=== PATIENT | male | born 1970 | race Caucasian/White ===

== ENCOUNTER 2016-12-02 15:17 | Emergency (ER) | payer OTHER ==
[~2016-12-02] VITALS: Ht 170.2 cm; Wt 94.2 kg
[~2016-12-02 15:17] MED LIST: AMO500 PO; AZIT250T94 PO; BENZ100C70 PO; CIPR500T4 PO; DOCU-144 PO; IBUP-1542 PO; IBUP800T25 PO; METR500T PO; SODI44SP11 NASAL; UDROBDM PO
[2016-12-02 15:21] VITALS: Ht 170.2 cm; Wt 94.2 kg
--- NOTE | 2016-12-02 21:11 | ERD ---
ER Documentation Chief Complaint Date/Time DATE: 12/02/16 TIME: 21:09 Chief Complaint cwp HPI 46-year-old male with history of cocaine abuse ambulatory to the ED complaining of feelings of sharp, stabbing, intermittent, nonradiating, mild chest pain while smoking crack yesterday evening. The symptoms were not accompanied by palpitations, shortness of breath, nausea, vomiting or diaphoresis. No chest pain currently. His friend encouraged him to come to the ED to have this checked out. Denies abdominal pain or back pain. No nausea, vomiting, diarrhea or constipation. No headache or neck pain. No visual changes, focal weakness or numbness. No URI symptoms or cough. No fevers or chills. ROS All systems reviewed and are negative except as per history of present illness. Medications Home Meds Active Scripts Docusate Sodium* (Colace*) 100 Mg Capsule, 100 MG PO BID, #30 CAP Prov:LORENZO SOSA MD 05/07/16 Metronidazole* (Flagyl*) 500 Mg Tablet, 500 MG PO BID for 7 Days, TAB Prov:LORENZO SOSA MD 05/07/16 Ciprofloxacin Hcl* (Ciprofloxacin Hcl*) 500 Mg Tablet, 500 MG PO BID for 7 Days , TAB Prov:LORENZO SOSA MD 05/07/16 Ibuprofen* (Motrin*) 600 Mg Tab, 600 MG PO Q6, #20 TAB Prov:LORENZO SOSA MD 05/07/16 Sodium Chloride (Saline Nasal [place]) 45 Ml [place], 2 SPRAYS NASAL Q2H Y for NASAL CONGESTION, #1 BOTTLE Prov:JACOB ROWLAND NP 03/23/16 Benzonatate* (Tessalon Perle*) 100 Mg Capsule, 100 MG PO Q8H Y for COUGH, #30 CAP Prov:JACOB ROWLAND NP 03/23/16 Ibuprofen* (Motrin*) 600 Mg Tab, 600 MG PO Q6, #20 TAB Prov:SIDNEY MARADIAGA PA-C 02/27/16 Amoxicillin* (Amoxicillin*) 500 Mg Cap, 500 MG PO TID for 7 Days, CAP Prov:SIDNEY MARADIAGA PA-C 02/27/16 Ibuprofen* (Motrin*) 800 Mg Tab, 800 MG PO Q6H Y for PAIN AND OR ELEVATED TEMP, #30 TAB Prov:STUART ARREGUIN PA-C 01/29/16 Azithromycin* (Zithromax*) 250 Mg Tablet, 250 MG PO .ZPACK DIRECTED, #6 TAB 0 Refills TAKE 500 MG (2 TABS) THE FIRST DAY THEN 250 MG (1 TAB) DAYS 2-5 Prov:YOHANA CERVANTES PA-C 10/22/15 Guaifenesin-Dextromethorphan* (Robitussin* DM) 100MG/10MG/5ML Syrup, 5 ML PO Q6H Y for COUGH, #240 ML 0 Refills Prov:YOHANA CERVANTES PA-C 10/22/15 Reported Medications [none] No Conflict Check 02/23/13 Allergies Allergies: Coded Allergies: No Known Allergies (Verified Allergy, Mild, 04/16/13) PMhx/Soc Reviewed in chart. As per HPI. History of Surgery: No Anesthesia Reaction: No Hx Neurological Disorder: No Hx Respiratory Disorders: No Hx Cardiac Disorders: No Hx Psychiatric Problems: No Hx Miscellaneous Medical Probl: Yes (Diverticulitis) Hx Alcohol Use: Yes (Crack cocaine social) Hx Substance Use: Yes Hx Tobacco Use: Yes Smoking Status: Never smoker FmHx Maternal grandmother had heart disease. No family history of stroke or cancer Physical Exam Vitals Vital Signs Date Time Temp Pulse Resp B/P Pulse Ox O2 Delivery O2 Flow Rate FiO2 12/02/16 22:14 75 17 123/62 96 Room Air 12/02/16 20:44 71 16 137/92 100 Room Air 12/02/16 15:21 98.1 80 20 161/86 98 Physical Exam Const: Alert, no acute distress. Head: Atraumatic Eyes: Normal Conjunctiva ENT: Normal External Ears, Nose and Mouth. Neck: Full range of motion. Nontender. Resp: Clear to auscultation bilaterally Cardio: Regular rate and rhythm, no murmurs. No chest wall tenderness. Abd: Soft, non tender, non distended. Normal bowel sounds Skin: No petechiae or rashes Back: No midline or flank tenderness Ext: No cyanosis, or edema Neur: Awake and alert. No focal deficit observed. Psych: Appears mildly anxious but not depressed. Result Diagram: 12/02/16204412/02/162044 Results 24 hrs Laboratory Tests Test 12/02/16 20:45 White Blood Count 9.210^3/ul Red Blood Count 5.8010^6/ul Hemoglobin 16.4g/dl Hematocrit 49.4% Mean Corpuscular Volume 85.2fl Mean Corpuscular Hemoglobin 28.3pg Mean Corpuscular Hemoglobin Concent 33.2g/dl Red Cell Distribution Width 14.1% Platelet Count 44079^3/UL Mean Platelet Volume 10.0fl Neutrophils % 62.1% Lymphocytes % 25.1% Monocytes % 8.9% Eosinophils % 2.5% Basophils % 0.8% Nucleated Red Blood Cells % 0.0/100WBC Neutrophils # 5.710^3/ul Lymphocytes # 2.310^3/ul Monocytes # 0.810^3/ul Eosinophils # 0.210^3/ul Basophils # 0.110^3/ul Nucleated Red Blood Cells # 0.010^3/ul Sodium Level 141mmol/L Potassium Level 3.6mmol/L Chloride Level 96mmol/L Carbon Dioxide Level 31mmol/L Anion Gap 18 Blood Urea Nitrogen 14mg/dl Creatinine 0.85mg/dl Glucose Level 120mg/dl Calcium Level 9.2mg/dl Total Bilirubin 0.5mg/dl Direct Bilirubin 0.00mg/dl Indirect Bilirubin 0.5mg/dl Aspartate Amino Transf (AST/SGOT) 29IU/L Alanine Aminotransferase (ALT/SGPT) 48IU/L Alkaline Phosphatase 88IU/L Troponin I < 0.012ng/ml Total Protein 8.1g/dl Albumin 4.4g/dl Globulin 3.70g/dl Albumin/Globulin Ratio 1.18 RHYTHM STRIP INTERPRETATION: Time: 21:10. Sinus rhythm. Ventricular rate 72. No ectopy. Indication: Chest pain. EKG: Time: 21:42. Sinus rhythm. Ventricular rate 70, normal RI and QRS intervals. No acute ST segment elevation or depression. No axis deviation or ectopy. EP Impression: Normal EKG IMAGING: PROCEDURE: XR Chest. CLINICAL INDICATION: Chest pain TECHNIQUE: A single portable view of the chest was obtained. COMPARISON: 03/23/2016 FINDINGS: The cardiomediastinal silhouette is within normal limits. The lung volumes are low with bibasilar compressive atelectasis. The remaining lungs and pleural spaces are clear. The soft tissues and osseous structures are unremarkable. IMPRESSION: No acute cardiopulmonary disease. Low lung volumes with bibasilar compressive atelectasis. RPTAT: HPNM Physician Sara Date Time Electronically viewed and signed by Jaren Doshi Physician on 12/02/2016 22 :02 / Procedures/MDM DOCUMENTS REVIEWED: ED nurse, prior ED, prior records REEXAMINATION/REEVALUATION: Time:22:05. No chest pain or palpitations. Sinus rhythm without ectopy. MEDICAL DECISION MAKIN-year-old male with history of cocaine abuse ambulatory to the ED complaining of feelings of sharp, stabbing, intermittent, nonradiating, mild chest pain while smoking crack yesterday evening. Patient presents with atypical chest pain. No ischemic EKG changes or elevated troponin. No radiographic evidence of pneumonia or pneumothorax. PERC negative and low risk for pulmonary embolism. Other cardiac etiology is possible he is at low risk for an acute event and is stable for discharge with precautionary instructions and outpatient follow-up within 72 hours for further risk stratification. Understands return to the ED if symptoms recur. Drug cessation counseling is provided. Counseled patient regarding diagnostic workup, diagnosis and need for followup. Understands to return to ED if symptoms recur, worsen or any other concerns. Departure Diagnosis: Primary Impression: Chest pain of uncertain etiology Additional Impression: Cocaine abuse Condition: Stable Patient Instructions: Chest Pain, Uncertain Cause CARLOS OVIEDO MD Dec 02, 2016 21:11
[2016-12-02 21:13] LABS: ADD SCAN DIFF NO
[2016-12-02 21:15] LABS: BASOPHIL # 0.1 10^3/ul (0.0-0.1); BASOPHILS % 0.8 % (0.0-2.0); EOSINOPHILS # 0.2 10^3/ul (0.0-0.5); EOSINOPHILS % 2.5 % (0.0-7.0); HEMATOCRIT 49.4 % (42.0-52.0); HEMOGLOBIN 16.4 g/dl (14.0-18.0); LYMPHOCYTES # 2.3 10^3/ul (0.8-2.9); LYMPHOCYTES % 25.1 % (15.0-51.0); MEAN CORPUSCULAR HEMOGLOBIN 28.3 pg (29.0-33.0); MEAN CORPUSCULAR HGB CONC 33.2 g/dl (32.0-37.0); MEAN CORPUSCULAR VOLUME 85.2 fl (82.0-101.0); MONOCYTE # 0.8 10^3/ul (0.3-0.9); MONOCYTES % 8.9 % (0.0-11.0); NEUTROPHIL # 5.7 10^3/ul (1.6-7.5); NEUTROPHILS % 62.1 % (39.0-77.0); PLATELET COUNT 369 10^3/UL (140-415); RED CELL DISTRIBUTION WIDTH 14.1 % (11.5-14.5); WHITE BLOOD COUNT 9.2 10^3/ul (4.8-10.8)
[2016-12-02 21:35] LABS: ALBUMIN 4.4 g/dl (3.3-4.9); CHLORIDE 96 mmol/L (97-110)
[2016-12-02 21:36] LABS: POTASSIUM 3.6 mmol/L (3.5-5.1); SODIUM 141 mmol/L (135-144)
[2016-12-02 21:38] LABS: ALANINE AMINOTRANSFERASE 48 IU/L (13-69); ALBUMIN/GLOBULIN RATIO 1.18; ALKALINE PHOSPHATASE 88 IU/L (42-121); ANION GAP 18 (8-16); ASPARTATE AMINO TRANSFERASE 29 IU/L (15-46); BILIRUBIN,INDIRECT 0.5 mg/dl (0-1.1); BILIRUBIN,TOTAL 0.5 mg/dl (0.2-1.3); BLOOD UREA NITROGEN 14 mg/dl (7-20); CARBON DIOXIDE 31 mmol/L (21-31); CREATININE 0.85 mg/dl (0.61-1.24); TOTAL PROTEIN 8.1 g/dl (6.1-8.1)
[2016-12-02 21:39] LABS: CALCIUM 9.2 mg/dl (8.4-10.2); GLUCOSE 120 mg/dl (70-220)
[2016-12-02 21:53] LABS: TROPONIN-I < 0.012 ng/ml (0.00-0.12)
--- NOTE | 2016-12-02 22:02 | RADRPT ---
PROCEDURE: XR Chest. CLINICAL INDICATION: Chest pain TECHNIQUE: A single portable view of the chest was obtained. COMPARISON: 03/23/2016 FINDINGS: The cardiomediastinal silhouette is within normal limits. The lung volumes are low with bibasilar co mpressive atelectasis. The remaining lungs and pleural spaces are clear. The soft tissues and osseo us structures are unremarkable. IMPRESSION: No acute cardiopulmonary disease. Low lung volumes with bibasilar compressive atelectasis. RPTAT: HPNM Physician Sara Date Time Electronically viewed and signed by Jaren Doshi Physician on 12/02/2016 22:02 /
[2016-12-02 22:14] VITALS: BP 123/62; PULSE 75; RESP 17
== END 2016-12-02 22:58 | disposition home or self-care (01) ==
LOC: E/R 15:17
DX: R07.89 Other chest pain (principal); F14.10 Cocaine abuse, uncomplicated; Z87.891 Personal history of nicotine dependence
CPT/HCPCS: 36415; 71010; 80053; 84484; 85025; 93005; Z7502

== ENCOUNTER 2016-12-31 14:08 | Emergency (ER) | payer SELFPAY ==
[~2016-12-31] VITALS: Ht 177.8 cm; Wt 117.0 kg
[2016-12-31 14:21] VITALS: Ht 177.8 cm; Wt 117.0 kg
== END 2016-12-31 20:51 | disposition left against medical advice (07) ==
LOC: E/R 14:08
DX: Z53.21 Procedure and treatment not carried out due to patient leaving prior to being seen by health care provider (principal)
CPT/HCPCS: 93005

== ENCOUNTER 2017-01-04 09:39 | Emergency (ER) | payer OTHER ==
[~2017-01-04] VITALS: Ht 167.6 cm; Wt 113.6 kg
[2017-01-04 09:44] VITALS: Ht 167.6 cm; Wt 113.6 kg
[2017-01-04] MEDS ORDERED: IBUPROFEN 800 MG TAB PO ONE (11:00)
--- NOTE | 2017-01-04 11:05 | ERD ---
ER Documentation Chief Complaint Date/Time DATE: 01/04/17 TIME: 11:01 Chief Complaint MID CHEST PAIN HPI 46-year-old who presents to the emergency room complaining of chest pain. The patient is a very difficult historian. He has a history of polysubstance abuse and cocaine abuse. The patient describes greater than 1 month of symptoms that include intermittent chest wall pain that is worse with rotational movement, worse to touch. He states that the pain is usually alleviated by massaging his muscles. He denies current cocaine abuse. He denies any pleuritic pain, no fevers or chills, no cough, no dyspnea on exertion. ROS All systems reviewed and are negative except as per history of present illness. Medications Home Meds Active Scripts Ibuprofen* (Motrin*) 800 Mg Tab, 800 MG PO Q6H Y for PAIN AND OR ELEVATED TEMP, #30 TAB Prov:JAYDA KAUR MD 01/04/17 Discontinued Reported Medications [none] No Conflict Check 02/23/13 Discontinued Scripts Docusate Sodium* (Colace*) 100 Mg Capsule, 100 MG PO BID, #30 CAP Prov:LORENZO SOSA MD 05/07/16 Metronidazole* (Flagyl*) 500 Mg Tablet, 500 MG PO BID for 7 Days, TAB Prov:LORENZO SOSA MD 05/07/16 Ciprofloxacin Hcl* (Ciprofloxacin Hcl*) 500 Mg Tablet, 500 MG PO BID for 7 Days , TAB Prov:LORENZO SOSA MD 05/07/16 Ibuprofen* (Motrin*) 600 Mg Tab, 600 MG PO Q6, #20 TAB Prov:LORENZO SOSA MD 05/07/16 Sodium Chloride (Saline Nasal [place]) 45 Ml [place], 2 SPRAYS NASAL Q2H Y for NASAL CONGESTION, #1 BOTTLE Prov:JACOB ROWLAND. VP OF MARKETING 03/23/16 Benzonatate* (Tessalon Perle*) 100 Mg Capsule, 100 MG PO Q8H Y for COUGH, #30 CAP Prov:JACOB ROWLAND. VP OF MARKETING 03/23/16 Ibuprofen* (Motrin*) 600 Mg Tab, 600 MG PO Q6, #20 TAB Prov:SIDNEY MARADIAGA PA-C 02/27/16 Amoxicillin* (Amoxicillin*) 500 Mg Cap, 500 MG PO TID for 7 Days, CAP Prov:SIDNEY MARADIAGA PA-C 02/27/16 Ibuprofen* (Motrin*) 800 Mg Tab, 800 MG PO Q6H Y for PAIN AND OR ELEVATED TEMP, #30 TAB Prov:STUART ARREGUIN PA-C 01/29/16 Azithromycin* (Zithromax*) 250 Mg Tablet, 250 MG PO .ZPACK DIRECTED, #6 TAB 0 Refills TAKE 500 MG (2 TABS) THE FIRST DAY THEN 250 MG (1 TAB) DAYS 2-5 Prov:YOHANA CERVANTES PA-C 10/22/15 Guaifenesin-Dextromethorphan* (Robitussin* DM) 100MG/10MG/5ML Syrup, 5 ML PO Q6H Y for COUGH, #240 ML 0 Refills Prov:YOHANA CERVANTES PA-C 10/22/15 Allergies Allergies: Coded Allergies: No Known Allergies (Verified Allergy, Mild, 04/16/13) PMhx/Soc History of Surgery: No Anesthesia Reaction: No Hx Neurological Disorder: No Hx Respiratory Disorders: No Hx Cardiac Disorders: No Hx Psychiatric Problems: No Hx Miscellaneous Medical Probl: Yes (Diverticulitis) Hx Alcohol Use: Yes (Crack cocaine social) Hx Substance Use: Yes Hx Tobacco Use: Yes FmHx Family History: No diabetes Physical Exam Vitals Vital Signs Date Time Temp Pulse Resp B/P Pulse Ox O2 Delivery O2 Flow Rate FiO2 01/04/17 09:44 98.1 80 19 139/75 97 Physical Exam General: Well developed, well nourished, no acute distress Head: Normocephalic, atraumatic. Eyes: Pupils equally reactive, EOM intact ENT: Moist mucous membranes Neck: Supple, no lymphadenopathy Respiratory: Lungs clear bilaterally, no distress, reproducible anterior chest wall tenderness Cardiovascular: RRR, no murmurs, rubs, or gallops Abdominal: Soft, non-tender, non-distended, no peritoneal signs : Deferred MSK: No edema, no unilateral swelling, 5/5 strength, no pulse deficits Neurologic: Alert and oriented, moving all extremities, normal speech, no focal weakness, no cerebellar signs Skin: No rash Psych: Normal mood Result Diagram: 01/04/17 1100 01/04/17 1100 Results 24 hrs Laboratory Tests Test 01/04/17 11:00 White Blood Count 7.210^3/ul Red Blood Count 5.2710^6/ul Hemoglobin 14.8g/dl Hematocrit 45.1% Mean Corpuscular Volume 85.6fl Mean Corpuscular Hemoglobin 28.1pg Mean Corpuscular Hemoglobin Concent 32.8g/dl Red Cell Distribution Width 13.6% Platelet Count 94829^3/UL Mean Platelet Volume 10.3fl Neutrophils % 69.2% Lymphocytes % 19.3% Monocytes % 6.1% Eosinophils % 4.0% Basophils % 0.6% Nucleated Red Blood Cells % 0.0/100WBC Neutrophils # 5.010^3/ul Lymphocytes # 1.410^3/ul Monocytes # 0.410^3/ul Eosinophils # 0.310^3/ul Basophils # 0.010^3/ul Nucleated Red Blood Cells # 0.010^3/ul Sodium Level 136mmol/L Potassium Level 4.0mmol/L Chloride Level 105mmol/L Carbon Dioxide Level 24mmol/L Anion Gap 11 Blood Urea Nitrogen 17mg/dl Creatinine 0.84mg/dl Glucose Level 190mg/dl Calcium Level 8.6mg/dl Troponin I < 0.012ng/ml Current Medications Medications (Trade) Dose Ordered Sig/Lg Route PRN Reason Start Time Stop Time Status Last Admin Dose Admin Ibuprofen (Motrin) 800 mg ONCE ONCE PO 01/04/17 11:00 01/04/17 11:01 DC 01/04/17 10:56 Procedures/MDM EKG, MONITORS, & DIAGNOSTIC IMAGING: EKG: I reviewed and interpreted a 12-lead EKG. Rhythm: Normal sinus rhythm Ectopy: None Intervals: No abnormalities ST segments: No elevations or depressions T waves: No contiguous inversions Chest x-ray: I reviewed and interpreted a 1 view of the chest Mediastinum: No enlargement Cardiac silhouette: No cardiomegaly Airspace: Clear lung irving bilaterally without evidence of pneumothorax Bones: No evidence of fracture LAB INTERPRETATION: Negative troponin MEDICAL DECISION MAKING: The patient's history, physical exam and clinical presentation is concerning for likely muscular skeletal etiology. However the patient does have a history of cocaine abuse placing him at risk for cardiac etiology versus cocaine chest pain. I believe a single EKG and troponin will be reasonable to rule out cardiac etiology though given duration of symptoms, reproducible symptoms this seems extremely unlikely. Based on the patient's clinical exam and history and risk factors, I have a much lower clinical concern for pulmonary embolism, acute aortic dissection, pneumothorax, pneumonia, cardiac tamponade HEART Score: 2 MACE Rate: Less than 1.7% Shared Decision Making: We had a conversation regarding risk stratification, MACE rate, and the risks, benefits, alternatives of disposition planning options. Disposition planning: Inpatient hospitalization and rule out of ACS is not necessary ER COURSE: The patient was given Motrin. The patient's laboratory testing and diagnostic imaging is unrevealing. I believe the patient is safe for discharge. I kept the patient and/or family informed of laboratory and diagnostic imaging results throughout the emergency room course. DISPOSITION PLAN: We discussed follow up with the patient's primary care doctor within 24 to 48 hours as needed. We also discussed return to the emergency room for worsening symptoms or worsening condition. Outpatient referral: [None required] Discharge Medications: Motrin Departure Diagnosis: Primary Impression: Atypical chest pain Additional Impressions: Chest wall pain History of cocaine use Condition: Stable JAYDA KAUR MD Jan 04, 2017 11:05
[2017-01-04 11:23] LABS: ADD SCAN DIFF NO
[2017-01-04 11:26] LABS: BASOPHILS % 0.6 % (0.0-2.0); EOSINOPHILS # 0.3 10^3/ul (0.0-0.5); HEMATOCRIT 45.1 % (42.0-52.0); HEMOGLOBIN 14.8 g/dl (14.0-18.0); LYMPHOCYTES # 1.4 10^3/ul (0.8-2.9); LYMPHOCYTES % 19.3 % (15.0-51.0); MEAN CORPUSCULAR HEMOGLOBIN 28.1 pg (29.0-33.0); MEAN CORPUSCULAR HGB CONC 32.8 g/dl (32.0-37.0); MEAN CORPUSCULAR VOLUME 85.6 fl (82.0-101.0); MEAN PLATELET VOLUME 10.3 fl (7.4-10.4); MONOCYTE # 0.4 10^3/ul (0.3-0.9); MONOCYTES % 6.1 % (0.0-11.0); NEUTROPHILS % 69.2 % (39.0-77.0); PLATELET COUNT 286 10^3/UL (140-415); RED BLOOD COUNT 5.27 10^6/ul (4.70-6.10); RED CELL DISTRIBUTION WIDTH 13.6 % (11.5-14.5); WHITE BLOOD COUNT 7.2 10^3/ul (4.8-10.8)
[2017-01-04 11:42] LABS: ANION GAP 11 (8-16); BLOOD UREA NITROGEN 17 mg/dl (7-20); CALCIUM 8.6 mg/dl (8.4-10.2); CARBON DIOXIDE 24 mmol/L (21-31); CHLORIDE 105 mmol/L (97-110); CREATININE 0.84 mg/dl (0.61-1.24); GLUCOSE 190 mg/dl (70-220); SODIUM 136 mmol/L (135-144)
[2017-01-04 11:52] LABS: TROPONIN-I < 0.012 ng/ml (0.00-0.12)
--- NOTE | 2017-01-04 12:02 | RADRPT ---
PROCEDURE: XR Chest. CLINICAL INDICATION: chest pain TECHNIQUE: Single frontal view of the chest was obtained COMPARISON: 12/02/2016 FINDINGS: The heart and mediastinum are within normal limits. There are mild left lower lobe linear atelectatic changes. The lungs are otherwise clear. There is no pleural effusion or pneumothorax. RPTAT: AA IMPRESSION: Mild left lower lobe linear atelectatic changes. .Elgin Pedroza MD, MD Date Time Electronically viewed and signed by .Elgin Pedroza MD, MD on 01/04/2017 12:01 .S/
[2017-01-04] MEDS ORDERED: IBUP800T25 PO (12:32)
== END 2017-01-04 12:49 | disposition home or self-care (01) ==
LOC: E/R 09:39
DX: R07.89 Other chest pain (principal); F14.90 Cocaine use, unspecified, uncomplicated; Z87.891 Personal history of nicotine dependence
CPT/HCPCS: 36415; 71010; 80048; 84484; 85025; 93005; Z7502; Z7610

== ENCOUNTER 2017-06-30 13:03 | Emergency (ER) | payer OTHER ==
[~2017-06-30] VITALS: Wt 100.0 kg
[~2017-06-30 13:03] MED LIST changes: -AMO500 PO; -AZIT250T94 PO; -BENZ100C70 PO; -CIPR500T4 PO; -DOCU-144 PO; -IBUP-1542 PO; -METR500T PO; -SODI44SP11 NASAL; -UDROBDM PO
--- NOTE | 2017-06-30 18:12 | ERA ---
ER Documentation Chief Complaint Date/Time DATE: 06/30/17 TIME: 18:07 Chief Complaint frequent urination, friend tested his blood sugar (200) last week. HPI Otherwise healthy 46-year-old male presents one day after checking his blood sugar randomly at friend's house and showed a reading of close to 200. Exact reading unknown. Diet prior to checking glucose level unknown. States when he drinks more water he tends to urinate more. Denies any nausea, vomiting, diarrhea, constipation, polyuria, dysuria, hematuria, urinary urgency or frequency, abdominal pain, change in diet. Denies recreational drugs. Denies recent alcohol use. Describes no current symptoms. Patient has no other complaints and describes no other associated manifestations. Nursing notes have been reviewed and are consistent with history given. ROS All systems reviewed and are negative except as per history of present illness. Medications Home Meds Active Scripts Ibuprofen* (Motrin*) 800 Mg Tab, 800 MG PO Q6H Y for PAIN AND OR ELEVATED TEMP, #30 TAB Prov:JAYDA KAUR MD 01/04/17 Allergies Allergies: Coded Allergies: No Known Allergies (Verified Allergy, Mild, 04/16/13) PMhx/Soc History of Surgery: No Anesthesia Reaction: No Hx Neurological Disorder: No Hx Respiratory Disorders: No Hx Cardiac Disorders: No Hx Psychiatric Problems: No Hx Miscellaneous Medical Probl: Yes (Diverticulitis) Hx Alcohol Use: Yes (Crack cocaine social) Hx Substance Use: Yes Hx Tobacco Use: Yes Physical Exam Vitals Vital Signs Date Time Temp Pulse Resp B/P Pulse Ox O2 Delivery O2 Flow Rate FiO2 06/30/17 13:13 98.2 67 20 195/76 98 Physical Exam Const: Overweight. Well-appearing. No acute distress. Head: Normocephalic, Atraumatic. Eyes: Non-injected; No discharge. EOMI and MONTSE bilaterally. Ears: Normal External Ears, EACs clear, TM normal bilaterally without erythema. Nose: Normal external nose; no discharge, or sinus tenderness. Oral: No oral edema visualized. Mucous membranes moist and pink. Neck: No cervical lymphadenopathy, or masses palpated. Supple ~ No meningismus. Pulm: Good air movement in upper and lower respiratory tracts. Clear to auscultation bilaterally. No dyspnea or stridor. Cardio: Regular rate and rhythm; No murmurs, gallops or rubs auscultated. Radial pulses 2+ bilaterally. No cyanosis noted. Capillary refill less than 2 seconds. Abd: Normal bowel sounds. Soft, non tender, non distended. MS: Normal motor strength, normal tone with gross examination. Skin: No petechiae or rashes. Good turgor. Back: No midline, flank or CVA tenderness. Ext: No edema. Normal movement of all extremities grossly observed. Neur: Neurovascularly intact bilaterally. Psych: Normal Mood and Affect. Results 24 hrs Laboratory Tests Test 06/30/17 18:07 Bedside Glucose 89mg/dL Procedures/MDM Well-appearing 46-year-old male presents one day after checking glucose with a level near 200 [address] Diet prior to checking glucose unknown. No medications, alcohol abuse, recreational drug use, or medical conditions. No current symptoms. No urinary symptoms. POC glucose was obtained and given the following reading: At this time I have a low suspicion for complications secondary to diabetes, other acute endocrine pathologies, urinary tract infection. Most likely diagnosis is possible diabetes. Not enough information is obtainable in the emergency department to give diagnosis of diabetes. I will suspicion for acute complications. I have advised the patient to follow-up in the next 2-3 days with PCP. List of clinics has been given. I have spoke with the patient regarding their condition and future management including the necessity to return to ED if symptoms develop. They have verbally responded that they understand their status and treatment plan. The patients vitals are stable, and their current condition is appropriate for discharge. The patient will be given discharge instructions with return precautions. Departure Diagnosis: Primary Impression: Screening for diabetes mellitus (DM) Condition: Stable Additional Instructions: Follow up with your PCP within the next 1-3 days for a more thorough evaluation and a possible referral to a specialist. Return the the emergency department immediately if symptoms worsen or change. If you have any questions regarding medications, ask your pharmacist or us before you leave. If any adverse reactions occur while taking your medications, discontinue the treatment and return to the emergency department immediately. Take your medications as directed, and complete the entire course of treatment. CAROLYN BELLE PA-C Jun 30, 2017 18:12
[2017-06-30 18:51] VITALS: BP 115/69; PULSE 75; RESP 20; TEMP 98
== END 2017-06-30 18:52 | disposition home or self-care (01) ==
LOC: FTE 13:03
DX: Z13.1 Encounter for screening for diabetes mellitus (principal); Z87.891 Personal history of nicotine dependence
CPT/HCPCS: 82962; Z7502; 99282